=== PATIENT | female | born 1975 | race Caucasian/White ===

== ENCOUNTER 2022-09-08 10:35 | Emergency (ER) | payer SELFPAY ==
[~2022-09-08] VITALS: Ht 167.6 cm; Wt 54.4 kg
[2022-09-08 10:50] VITALS: BP_SYST 149
--- NOTE | 2022-09-08 11:55 | NUR ---
Patient to ER bed 2 to gown for evaluation. Side rails up.
--- NOTE | 2022-09-08 12:02 | NUR ---
pt presents to ed with report of foot injury to left foot. pt reports she fell on her stairs this morning at approx 0930. pt states "i thought maybe i just sprained it but then it got swollen and the pain got worse." pt noted with swelling to dorsal aspect of right foot. ice pack applied to left foot and elevated. pt awake, a/o x4 and verbally responsive. no acute distress noted. breathing even and unlabored. safety measures in place.
--- NOTE | 2022-09-08 12:12 | NUR ---
xray at bedside
[2022-09-08] MEDS ORDERED: IBUPROFEN 600 MG TABLET PO ONE (12:45)
[2022-09-08] MEDS ORDERED: IBUP-1969 PO (13:09)
--- NOTE | 2022-09-08 13:14 | NUR ---
Placed a short let posterior splint, PMSC 2+ intacts. Gave crutches. Demostrated proper crutches use & patient returned demostration.
--- NOTE | 2022-09-08 13:47 | NUR ---
discharge instructions reviewed with pt, pt verbalized understanding and denied any questions. pt ambulated from ed with steady gait and assistance with crutches
[2022-09-08 13:49] VITALS: BP_SYST 113
== END 2022-09-08 13:47 | disposition home or self-care (01) ==
LOC: SED 10:35
DX: S93.602A Unspecified sprain of left foot, initial encounter (principal); Z79.899 Other long term (current) drug therapy; W10.9XXA Fall (on) (from) unspecified stairs and steps, initial encounter; Y93.89 Activity, other specified; Y92.89 Other specified places as the place of occurrence of the external cause; Y99.8 Other external cause status
CPT/HCPCS: 81025; 99284